=== PATIENT | female | born 1940 ===

== ENCOUNTER 2018-02-03 10:58 | Inpatient (IN) | payer MEDICARE, MEDICAID ==
[2018-02-03 11:19] VITALS: BMI 29.2
--- NOTE | 2018-02-03 12:14 | ED PDOC ---
HPI: General Adult Time Seen by Provider: 02/03/18 11:30 Chief Complaint (Nursing): Abdominal Pain History Per: Patient, Arcgis Developer History/Exam Limitations: language barrier (icelandic speaking) Onset/Duration Of Symptoms: Days (1), Waxing/Waning Have you had recent travel within the past 21 days to any of the following countries: [place], [place], [place] or [place]?: No Current Symptoms Are (Timing): Still Present Severity: Severe (Make sure to see your doctor in 1-2 days) Pain Scale Rating Of: 8 Additional History Per: Patient, Family ( at bedside) Additional Complaint(s): pt p/w + 1 day onset of waxing and waning diffuse abd cramps/pain, at most pain is 8/10; today the pain/discomfort is located more towards the left; pt also noted numerous episodes of nausea/vomiting and diarrhea, pt is unable to quantify it due to number of episodes; pt states + subject fever, + mild chills , no sweats, no cp/sob/palpitations, no urinary changes, no appetite, + lightheadedness/dizziness, no LOC, no fall/trauma/sick contact, no travel; pt is here for further eval pt's without other complaints. PCP: Philippe Past Medical History Reviewed: Historical Data, Nursing Documentation, Vital Signs Vital Signs: Last Vital Signs Temp 99.6 F 02/03/18 11:19 Pulse 116 H 02/03/18 11:19 Resp 16 02/03/18 11:19 BP 105/68 02/03/18 11:19 Pulse Ox 98 02/03/18 13:18 - Medical History PMH: Arthritis, CAD, Gastritis, HTN, Hypercholesterolemia, Hyperlipidemia, Hypothyroidism - Surgical History Surgical History: Back Surgery (x 3), Cholecystectomy - Family History Family History: States: No Known Family Hx - Living Arrangements Living Arrangements: With Family - Social History Current smoker - smoking cessation education provided: No Ex-Smoker (has not smoked in the last 12 months): No Alcohol: None Drugs: Denies - Home Medications Home Medications: Ambulatory Orders Medication Instructions Recorded Anastrozole [Arimidex] 1 mg PO DAILY 02/03/18 Cholecalciferol [Vitamin D 1000 IU] 1,000 unit PO DAILY 02/03/18 Dabigatran [Pradaxa] 150 mg PO Q12 02/03/18 Gabapentin [Neurontin] 100 mg PO Q8 02/03/18 Levothyroxine [Synthroid] 100 mcg PO DAILY 02/03/18 Omeprazole [Omeprazole] 20 mg PO DAILY 02/03/18 Ramipril [Altace] 2.5 mg PO DAILY 02/03/18 Rosuvastatin Calcium [Crestor] 20 mg PO DAILY 02/03/18 Sotalol [Betapace] 80 mg PO Q12 02/03/18 Travoprost [Travatan Z] 1 drop EACHEYE HS 02/03/18 metFORMIN [glucOPHAGE] 500 mg PO TID 02/03/18 - Allergies Allergies/Adverse Reactions: Allergies Allergy/AdvReac Type Severity Reaction Status Date / Time codeine Allergy RASH Verified 02/03/18 12:08 Review of Systems ROS Statement: Except As Marked, All Systems Reviewed And Found Negative Constitutional: Positive for: Fever, Chills, Weakness, Malaise. Negative for: Sweats, Weight loss Eyes: Negative for: Pain, Vision Change ENT: Negative for: Ear Pain, Ear Discharge Cardiovascular: Negative for: Chest Pain, Palpitations Respiratory: Negative for: Cough, Shortness of Breath, SOB with Exertion Gastrointestinal: Positive for: Nausea, Vomiting, Abdominal Pain, Diarrhea. Negative for: Constipation Genitourinary Female: Negative for: Dysuria, Hematuria Musculoskeletal: Negative for: Neck Pain, Back Pain Skin: Negative for: Rash Neurological: Positive for: Weakness, Dizziness. Negative for: Altered Mental Status Psych: Negative for: Anxiety Physical Exam - Reviewed Nursing Documentation Reviewed: Yes Vital Signs Reviewed: Yes (elevated HR/mild decr BP) - Physical Exam Appears: Positive for: Well, Non-toxic, No Acute Distress, Uncomfortable ( resting in bed, alert/awake, GCS = 15, oriented x 3, uncomfortable, cooperative , NAD) Head Exam: Positive for: ATRAUMATIC, NORMAL INSPECTION, NORMOCEPHALIC Skin: Positive for: Normal Color (cap refill < 1sec, no ulcerations, no petechiae, no rashes, no pallor), Warm. Negative for: Diaphoresis, Rash Eye Exam: Positive for: Normal appearance, EOMI, PERRL, Other (visual field intact b/l, no photophobia, sclera anicteric). Negative for: Nystagmus ENT: Positive for: Normal ENT Inspection, Hearing Is (WNL), Other (mild dry oral mucosa, no drooling/stridor, no exudate/lesions) Neck: Positive for: Normal (no nuchal rigidity, no meningeal signs), Painless ROM, Supple, Trachea Midline. Negative for: Decreased ROM Cardiovascular/Chest: Positive for: Chest Non Tender, Tachycardia (+S1, +S2, no murmur) Respiratory: Positive for: Normal Breath Sounds, Other (CTA b/l, no w/r/r, no accessory muscle use noted). Negative for: Decreased Breath Sounds Gastrointestinal/Abdominal: Positive for: Normal Exam, Bowel Sounds, Soft, Other (well nourished female, + diffuse mild abd tenderness, no baer's sign, no mcburney's point tenderness, no masses/rebound/guarding/rigidity) Back: Positive for: Normal Inspection. Negative for: Decreased ROM Extremity: Positive for: Normal ROM, Other (moving all limbs with ease, neurovasc intact b/l, strength 5/5 grossly intact in all limbs) DTR - Knee (R): 2+ DTR - Knee (L): 2+ Neurologic/Psych: Positive for: Alert, clinical studies specialist II-XII - Laboratory Results Result Diagrams: 02/03/18 12:50 02/03/18 12:50 - ECG ECG: Positive for: Interpreted By Me, Viewed By Me Interpretation Of ECG: Sinus tach at 105 bpm, LAD, no ectopy, qs in leads III/F, non-specific st-t changes, ABNL EKG; unchanged compare with old ekg 12/2014 O2 Sat by Pulse Oximetry: 98 Pulse Ox Interpretation: Normal - Radiology X-Ray: Viewed By Me, Read By Radiologist - Progress ED Course And Treament: HISTORY: weaknss, n/v/d COMPARISON: No prior. TECHNIQUE: Chest PA and lateral FINDINGS: LUNGS: No active pulmonary disease. PLEURA: No significant pleural effusion identified. No pneumothorax apparent. CARDIOVASCULAR: Cardiac loop recorder. Atherosclerotic aortic calcifications. Cardiomediastinal silhouette within normal limits. OSSEOUS STRUCTURES: Degenerative changes. VISUALIZED UPPER ABDOMEN: Normal. OTHER FINDINGS: Large hiatal hernia. Bilateral axillary surgical clips. IMPRESSION: No active disease. PROCEDURE: CT Abdomen and Pelvis with contrast HISTORY: n/v/d x 1 day, left lower quadrant abdominal pain COMPARISON: None. TECHNIQUE: Contrast dose: 80 cc Omnipaque 300 Radiation dose: Total exam DLP = 791.90 mGy-cm. This CT exam was performed using one or more of the following dose reduction techniques: Automated exposure control, adjustment of the mA and/or kV according to patient size, and/or use of iterative reconstruction technique. FINDINGS: LOWER THORAX: Large hiatal hernia LIVER: Unremarkable. No gross lesion or ductal dilatation. GALLBLADDER AND BILE DUCTS: Unremarkable. PANCREAS: Atrophic pancreas without focal or diffuse abnormalities. SPLEEN: Unremarkable. ADRENALS: Unremarkable. No mass. KIDNEYS AND URETERS: Unremarkable. No hydronephrosis. No solid mass. Incidental finding(s): Multiple simple right renal cysts the largest in the upper pole 3.2 cm. VASCULATURE: Unremarkable. No aortic aneurysm. BOWEL: Unremarkable. No obstruction. No gross mural thickening. APPENDIX: Normal appendix. PERITONEUM: Unremarkable. No free fluid. No free air. LYMPH NODES: Unremarkable. No enlarged lymph nodes. BLADDER: Unremarkable. REPRODUCTIVE: Atrophic uterus. BONES: No acute fracture. OTHER FINDINGS: None. IMPRESSION: No acute findings related to/accounting for the clinical presentation. Additional benign and/or incidental findings described above. 1200p - pt is awaiting diagnostic tests, pt with intermittent abd pain and persistent nausea 1400 - IV keeps malfunctioning, awaiting CT pt's pain is improved but pt's nausea persists 1645 - pt + vomited, continued nausea 1700 - i spoke to VULCAN CREWMEMBER Jasmyn, dedicated regional driver for [facility], made aware, agrees with admission/observation 1720 - pt is made aware of her medical results agrees with admission Re-evaluation Time: 15:30 Condition: Unchanged - Physician Consult Information Time Consulting Physican Contacted: 17:15 Physician Contacted: Agustin Vines Medical Decision Making Medical Decision Making: Impression: abd pain, n/v/d i have consider all the differential diagnosis regarding pt's chief medical complaints/clinical findings, including but are not limited to: r/o diverticulitis, r/o colitis, unlikely obstruction/mesenteric ischemia A/P: abd pain, n/v/d - labs - iv - xray - ct - supportive care - observe/reevaluation Disposition - Clinical Impression Clinical Impression: Intractable nausea and vomiting, Hiatal hernia, Abdominal cramping, Dehydration , Weakness - Patient ED Disposition Is Patient to be Admitted: Yes Doctor Will See Patient In The: Hospital Counseled Patient/Family Regarding: Studies Performed, Diagnosis, Rx Given - Disposition Disposition Time: 17:00 Condition: STABLE Instructions: Weakness (ED) Forms: [facility] ([place]) - Pt Status Changed To: Hospital Disposition Of: Observation
[2018-02-03] MEDS ORDERED: Morphine 4 MG/ML VIAL ONE ×2 (12:20→13:46)
--- NOTE | 2018-02-03 12:48 | RAD ---
HISTORY: weaknss, n/v/d COMPARISON: No prior. TECHNIQUE: Chest PA and lateral FINDINGS: LUNGS: No active pulmonary disease. PLEURA: No significant pleural effusion identified. No pneumothorax apparent. CARDIOVASCULAR: Cardiac loop recorder. Atherosclerotic aortic calcifications. Cardiomediastinal silhouette within normal limits. OSSEOUS STRUCTURES: Degenerative changes. VISUALIZED UPPER ABDOMEN: Normal. OTHER FINDINGS: Large hiatal hernia. Bilateral axillary surgical clips. IMPRESSION: No active disease.
[2018-02-03 12:59] LABS: BASO % 0.4 % (0.0-2.0); EOS % 0.1 % (0.0-4.0); HEMOGLOBIN 14.3 g/dL (12.0-16.0); LYMPH # 0.4 K/uL (1.0-4.3); LYMPH % 9.9 % (20.0-40.0); MEAN CELL VOLUME 90.8 fl (81.0-99.0); MEAN CORPUSCULAR HEMOGLOBIN 29.9 pg (27.0-31.0); MEAN CORPUSCULAR HGB CONC 32.9 g/dL (33.0-37.0); MEAN PLATELET VOLUME 8.9 fl (7.2-11.7); MONO # 0.4 K/uL (0.0-0.8); MONO % 8.1 % (0.0-10.0); NEUT # 3.7 K/uL (1.8-7.0); NEUT % 81.5 % (50.0-75.0); PLATELET COUNT 144 K/uL (130-400); RBC 4.79 Mil/uL (3.80-5.20); RED CELL DISTRIBUTION WIDTH 14.3 % (11.5-14.5); WHITE BLOOD COUNT 4.5 K/uL (4.8-10.8)
[2018-02-03 13:03] LABS: VENOUS BLOOD GAS BASE EXCESS 0.5 mmol/L (0.0-2.0); VENOUS BLOOD GAS PCO2 44 mmHg (40-60); VENOUS BLOOD GAS PO2 24 mm/Hg (30-55); VENOUS BLOOD PH 7.38 (7.32-7.43)
[2018-02-03] MEDS: Sodium Chloride 0.9% 1,000 ML IV SCH (13:03)
[2018-02-03 13:13] LABS: ALB/GLOB RATIO 1.1 (1.0-2.1); ALBUMIN 4.6 g/dL (3.5-5.0); ALT/SGPT 40 U/L (9-52); AST/SGOT 38 U/L (14-36); BLOOD UREA NITROGEN 16 mg/dl (7-17); CALCIUM 10.1 mg/dL (8.4-10.2); GFR AFRICAN-AMERICAN > 60; GFR NON-AFRICAN AMERICAN > 60; LIPASE 78 U/L (23-300)
[2018-02-03] MEDS ORDERED: Morphine 4 MG/ML VIAL IVP ONE (13:40)
[2018-02-03 13:49] LABS: LYMPHOCYTE 9 % (20-50); MONOCYTE 6 % (0-10); NEUTROPHIL 85 % (42-75); PLATELET ESTIMATE NORMAL (NORMAL); TOTAL CELLS COUNTED 100
[2018-02-03] MEDS ORDERED: HYDROmorphone 0.5 mg/0.5 ml ISec IVP ONE (13:53)
[2018-02-03] MEDS ORDERED: Iohexol 300 100 ML IJ ONE ×2 (13:58→15:58)
[2018-02-03] MEDS ORDERED: Sodium Chloride 0.9% 100 ML ONE ×2 (13:58→15:59)
[2018-02-03] MEDS ORDERED: HYDROmorphone 0.5 mg/0.5 ml ISec ONE (15:30)
[2018-02-03 15:39] LABS: SQUAMOUS EPITHIAL 1 /hpf (0-5); URINE BILIRUBIN NEGATIVE (NEGATIVE); URINE BLOOD NEGATIVE (NEGATIVE); URINE CLARITY SLIGHTY-CLOUDY (Clear); URINE COLOR YELLOW (YELLOW); URINE GLUCOSE (UA) NEG (Normal); URINE LEUKOCYTE ESTERASE NEG Leu/uL (Negative); URINE PROTEIN 30 mg/dL (NEGATIVE); URINE UROBILINOGEN 0.2-1.0 mg/dL (0.2-1.0)
--- NOTE | 2018-02-03 16:56 | CT ---
PROCEDURE: CT Abdomen and Pelvis with contrast HISTORY: n/v/d x 1 day, left lower quadrant abdominal pain COMPARISON: None. TECHNIQUE: Contrast dose: 80 cc Omnipaque 300 Radiation dose: Total exam DLP = 791.90 mGy-cm. This CT exam was performed using one or more of the following dose reduction techniques: Automated exposure control, adjustment of the mA and/or kV according to patient size, and/or use of iterative reconstruction technique. FINDINGS: LOWER THORAX: Large hiatal hernia LIVER: Unremarkable. No gross lesion or ductal dilatation. GALLBLADDER AND BILE DUCTS: Unremarkable. PANCREAS: Atrophic pancreas without focal or diffuse abnormalities. SPLEEN: Unremarkable. ADRENALS: Unremarkable. No mass. KIDNEYS AND URETERS: Unremarkable. No hydronephrosis. No solid mass. Incidental finding(s): Multiple simple right renal cysts the largest in the upper pole 3.2 cm. VASCULATURE: Unremarkable. No aortic aneurysm. BOWEL: Unremarkable. No obstruction. No gross mural thickening. APPENDIX: Normal appendix. PERITONEUM: Unremarkable. No free fluid. No free air. LYMPH NODES: Unremarkable. No enlarged lymph nodes. BLADDER: Unremarkable. REPRODUCTIVE: Atrophic uterus. BONES: No acute fracture. OTHER FINDINGS: None. IMPRESSION: No acute findings related to/accounting for the clinical presentation. Additional benign and/or incidental findings described above.
[2018-02-03] MEDS ORDERED: Latanoprost 0.005% Opht SOUTION OU SCH (22:00)
[2018-02-03] MEDS: Insulin Lispro (humaLOG) 100 Units/ml Inj SC SCH (22:28)
[2018-02-04] MEDS: Sodium Chloride 0.9% 1,000 ML IV SCH (00:08)
[2018-02-04 05:53] LABS: HEMOGLOBIN 13.3 g/dL (12.0-16.0); MEAN CELL VOLUME 90.6 fl (81.0-99.0); MEAN CORPUSCULAR HEMOGLOBIN 30.3 pg (27.0-31.0); MEAN CORPUSCULAR HGB CONC 33.4 g/dL (33.0-37.0); RBC 4.39 Mil/uL (3.80-5.20); RED CELL DISTRIBUTION WIDTH 14.3 % (11.5-14.5); WHITE BLOOD COUNT 3.9 K/uL (4.8-10.8)
[2018-02-04 05:59] LABS: BLOOD UREA NITROGEN 14 mg/dl (7-17); CALCIUM 9.3 mg/dL (8.4-10.2); GFR AFRICAN-AMERICAN > 60; GFR NON-AFRICAN AMERICAN > 60
[2018-02-04] MEDS: Levothyroxine 100 MCG TAB PO SCH (06:27)
[2018-02-04] MEDS: Insulin Lispro (humaLOG) 100 Units/ml Inj SC SCH ×4 (07:23→22:00)
--- NOTE | 2018-02-04 08:12 | CP.PCM.CON ---
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 PMH: Arthritis, CAD, Gastritis, HTN, Hypercholesterolemia, Hyperlipidemia, Hypothyroidism EKG: NSR no change from 2015 Troponin: neg Past Patient History - Past Medical History & Family History Past Medical History?: Yes - Past Social History Smoking Status: Never Smoked - CARDIAC Hx Cardiac Disorders: Yes Hx Hypercholesterolemia: Yes Hx Hypertension: Yes - PULMONARY Hx Respiratory Disorders: No - NEUROLOGICAL Hx Neurological Disorder: No - HEENT Hx HEENT Problems: No - RENAL Hx Chronic Kidney Disease: No - ENDOCRINE/METABOLIC Hx Endocrine Disorders: Yes Hx Diabetes Mellitus Type 2: Yes Hx Hypothyroidism: Yes - HEMATOLOGICAL/ONCOLOGICAL Hx Blood Disorders: No Hx AIDS: No Hx Cancer: Yes (Breast) Hx Human Immunodeficiency Virus (HIV): No - INTEGUMENTARY Hx Dermatological Problems: No - MUSCULOSKELETAL/RHEUMATOLOGICAL Hx Musculoskeletal Disorders: Yes Hx Arthritis: Yes Hx Falls: No Other/Comment: Back surgery - GASTROINTESTINAL Hx Gastrointestinal Disorders: Yes Hx Gastritis: Yes - GENITOURINARY/GYNECOLOGICAL Hx Genitourinary Disorders: No - PSYCHIATRIC Hx Psychophysiologic Disorder: No Hx Substance Use: No - SURGICAL HISTORY Hx Surgeries: Yes Hx Cholecystectomy: Yes Other/Comment: Back surgery - ANESTHESIA Hx Anesthesia: Yes Hx Anesthesia Reactions: No Meds Allergies/Adverse Reactions: Allergies Allergy/AdvReac Type Severity Reaction Status Date / Time codeine Allergy RASH Verified 02/03/18 12:08 lidocaine Allergy DIZZINESS Verified 02/04/18 02:28 - Medications Medications: Current Medications Anastrozole (Arimidex 1 Mg Tab) 1 mg PO DAILY [facility] Atorvastatin Calcium (Lipitor) 40 mg PO DAILY [facility] Cholecalciferol (Vitamin D) 1,000 intlu PO DAILY [facility] Dabigatran (Pradaxa) 150 mg PO BID [facility] PRN Reason: Protocol Enoxaparin Sodium (Lovenox) 40 mg SC DAILY [facility] PRN Reason: Protocol Famotidine (Famotidine) 20 mg IVP Q12 [facility] Last Admin: 02/04/18 00:05 Dose: 20 mg Gabapentin (Neurontin) 100 mg PO TID [facility] Sodium Chloride (Sodium Chloride 0.9%) 1,000 mls @ 100 mls/hr IV .Q10H [facility] Stop: 02/04/18 12:11 Last Admin: 02/04/18 00:08 Dose: 100 mls/hr Insulin Human Lispro (Humalog) 0 units SC ACHS [facility] PRN Reason: Protocol Last Admin: 02/04/18 07:23 Dose: Not Given Latanoprost (Xalatan Opht) 1 drop OU HS [facility] Levothyroxine Sodium (Synthroid) 100 mcg PO DAILY@0630 [facility] Last Admin: 02/04/18 06:27 Dose: 100 mcg Metformin HCl (Glucophage) 500 mg PO TID [facility] Metoclopramide HCl (Reglan) 10 mg IVP Q6 PRN PRN Reason: Nausea/Vomiting Last Admin: 02/03/18 18:24 Dose: 10 mg Ramipril (Altace) 2.5 mg PO DAILY [facility] Sotalol HCl (Betapace) 80 mg PO BID [facility] Physical Exam - Respiratory Exam Respiratory Exam: NORMAL BREATHING PATTERN - Cardiovascular Exam Cardiovascular Exam: REGULAR RHYTHM Results - Vital Signs Recent Vital Signs: Last Vital Signs Temp 99.8 F H 02/04/18 05:50 Pulse 109 H 02/04/18 05:50 Resp 18 02/04/18 05:50 BP 112/60 02/04/18 05:50 Pulse Ox 95 02/04/18 05:50 - Labs Result Diagrams: 02/04/18 05:05 02/04/18 05:05 Labs: Laboratory Results - last 24 hr 02/03/18 02/03/18 02/03/18 12:18 12:50 12:50 WBC 4.5 L RBC 4.79 Hgb 14.3 Hct 43.5 MCV 90.8 MCH 29.9 MCHC 32.9 L RDW 14.3 Plt Count 144 MPV 8.9 Neut % (Auto) 81.5 H Lymph % (Auto) 9.9 L [place] % (Auto) 8.1 Eos % (Auto) 0.1 Baso % (Auto) 0.4 Neut # (Auto) 3.7 Lymph # (Auto) 0.4 L [place] # (Auto) 0.4 Eos # (Auto) 0.0 Baso # (Auto) 0.0 Neutrophils % (Manual) 85 H Lymphocytes % (Manual) 9 L Monocytes % (Manual) 6 Platelet Estimate Normal RBC Morphology Normal pO2 24 L VBG pH 7.38 VBG pCO2 44 VBG HCO3 23.8 VBG Total CO2 27.4 VBG O2 Sat (Calc) 49.7 VBG Base Excess 0.5 VBG Potassium 4.0 Sodium 135.0 139 Chloride 102.0 101 Glucose 137 H Lactate 1.4 FiO2 21.0 Potassium 4.4 Carbon Dioxide 21 L Anion Gap 21 H BUN 16 Creatinine 0.8 Est GFR ( Amer) > 60 Est GFR (Non-Af Amer) > 60 POC Glucose (mg/dL) Random Glucose 137 H Calcium 10.1 Total Bilirubin 0.8 AST 38 H ALT 40 Alkaline Phosphatase 55 Troponin I < 0.0120 Total Protein 8.9 H Albumin 4.6 Globulin 4.2 H Albumin/Globulin Ratio 1.1 Lipase 78 TSH 3rd Generation Venous Blood Potassium 4.0 Urine Color Urine Clarity Urine pH Ur Specific [place] Urine Protein Urine Glucose (UA) Urine Ketones Urine Blood Urine Nitrate Urine Bilirubin Urine Urobilinogen Ur Leukocyte Esterase Urine RBC (Auto) Urine Microscopic WBC Ur Squamous Epith Cells 02/03/18 02/03/18 02/03/18 15:26 21:10 21:13 WBC RBC Hgb Hct MCV MCH MCHC RDW Plt Count MPV Neut % (Auto) Lymph % (Auto) [place] % (Auto) Eos % (Auto) Baso % (Auto) Neut # (Auto) Lymph # (Auto) [place] # (Auto) Eos # (Auto) Baso # (Auto) Neutrophils % (Manual) Lymphocytes % (Manual) Monocytes % (Manual) Platelet Estimate RBC Morphology pO2 VBG pH VBG pCO2 VBG HCO3 VBG Total CO2 VBG O2 Sat (Calc) VBG Base Excess VBG Potassium Sodium Chloride Glucose Lactate FiO2 Potassium Carbon Dioxide Anion Gap BUN Creatinine Est GFR ( Amer) Est GFR (Non-Af Amer) POC Glucose (mg/dL) 114 H Random Glucose Calcium Total Bilirubin AST ALT Alkaline Phosphatase Troponin I < 0.0120 Total Protein Albumin Globulin Albumin/Globulin Ratio Lipase TSH 3rd Generation Venous Blood Potassium Urine Color Yellow Urine Clarity Slighty-cloudy Urine pH 5.0 Ur Specific [place] 1.025 Urine Protein 30 Urine Glucose (UA) Neg Urine Ketones Negative Urine Blood Negative Urine Nitrate Negative Urine Bilirubin Negative Urine Urobilinogen 0.2-1.0 Ur Leukocyte Esterase Neg Urine RBC (Auto) 3 Urine Microscopic WBC 3 Ur Squamous Epith Cells 1 02/04/18 02/04/18 02/04/18 05:00 05:05 05:05 WBC 3.9 L RBC 4.39 Hgb 13.3 Hct 39.8 MCV 90.6 MCH 30.3 MCHC 33.4 RDW 14.3 Plt Count 139 MPV Neut % (Auto) Lymph % (Auto) [place] % (Auto) Eos % (Auto) Baso % (Auto) Neut # (Auto) Lymph # (Auto) [place] # (Auto) Eos # (Auto) Baso # (Auto) Neutrophils % (Manual) Lymphocytes % (Manual) Monocytes % (Manual) Platelet Estimate RBC Morphology pO2 VBG pH VBG pCO2 VBG HCO3 VBG Total CO2 VBG O2 Sat (Calc) VBG Base Excess VBG Potassium Sodium 142 Chloride 106 Glucose Lactate FiO2 Potassium 3.8 Carbon Dioxide 18 L Anion Gap 22 H BUN 14 Creatinine 0.7 Est GFR ( Amer) > 60 Est GFR (Non-Af Amer) > 60 POC Glucose (mg/dL) 108 Random Glucose 128 H Calcium 9.3 Total Bilirubin AST ALT Alkaline Phosphatase Troponin I < 0.0120 Total Protein Albumin Globulin Albumin/Globulin Ratio Lipase TSH 3rd Generation 1.01 Venous Blood Potassium Urine Color Urine Clarity Urine pH Ur Specific [place] Urine Protein Urine Glucose (UA) Urine Ketones Urine Blood Urine Nitrate Urine Bilirubin Urine Urobilinogen Ur Leukocyte Esterase Urine RBC (Auto) Urine Microscopic WBC Ur Squamous Epith Cells Assessment & Plan (1) Abdominal cramping Assessment and Plan: Cardiac stallings the pt is stable Status: Acute (2) Intractable nausea and vomiting Status: Acute
--- NOTE | 2018-02-04 08:22 | CARD ---
APPROVED REPORT EKG Measurement Heart [id number] <Conclusion> Sinus tachycardia Inferior infarct, age undetermined Abnormal ECG
[2018-02-04] MEDS: Cholecalciferol 1,000 INTLU TAB PO SCH (08:58)
[2018-02-04] MEDS ORDERED: Enoxaparin 40 mg Syringe SC SCH (09:00)
[2018-02-04] MEDS ORDERED: Pantoprazole 40 mg EC Tab PO SCH (09:00)
[2018-02-04] MEDS ORDERED: Cholecalciferol 1,000 INTLU TAB PO SCH (09:00)
[2018-02-04] MEDS ORDERED: Levothyroxine 100 MCG TAB PO SCH (09:00)
[2018-02-04] MEDS ORDERED: Sodium Chloride 0.9% 1,000 ML IV SCH (11:45)
--- NOTE | 2018-02-04 17:52 | CARD ---
APPROVED REPORT EKG Measurement Heart [id number] <Conclusion> Normal sinus rhythm Normal ECG
[2018-02-04] MEDS: Latanoprost 0.005% Opht SOUTION OU SCH (21:47)
--- NOTE | 2018-02-04 23:59 | CP.PCM.HP ---
History of Present Illness - History of Present Illness History of Present Illness: CC:Abdominal Pain HPI: A 77yoF with 1 day onset of waxing and waning diffuse abd cramps/pain, at most pain is 8/10; today the pain/discomfort is located more towards the left; pt also noted numerous episodes of nausea/vomiting and diarrhea, pt is unable to quantify it due to number of episodes; pt states + subject fever, + mild chills , no sweats, no cp/sob/palpitations, no urinary changes, no appetite, + lightheadedness/dizziness, no LOC, no fall/trauma/sick contact, no travel; pt is here for further eval Pt's without other complaints. Present on Admission - Present on Admission Any Indicators Present on Admission: No Review of Systems - Review of Systems All systems: reviewed and no additional remarkable complaints except Past Patient History - Past Medical History & Family History Past Medical History?: Yes Past Family History: Reviewed and not pertinent - Past Social History Smoking Status: Never Smoked Alcohol: None Drugs: Denies - CARDIAC Hx Cardiac Disorders: Yes Hx Hypercholesterolemia: Yes Hx Hypertension: Yes - PULMONARY Hx Respiratory Disorders: No - NEUROLOGICAL Hx Neurological Disorder: No - HEENT Hx HEENT Problems: No - RENAL Hx Chronic Kidney Disease: No - ENDOCRINE/METABOLIC Hx Endocrine Disorders: Yes Hx Diabetes Mellitus Type 2: Yes Hx Hypothyroidism: Yes - HEMATOLOGICAL/ONCOLOGICAL Hx Blood Disorders: No Hx AIDS: No Hx Cancer: Yes (Breast) Hx Human Immunodeficiency Virus (HIV): No - INTEGUMENTARY Hx Dermatological Problems: No - MUSCULOSKELETAL/RHEUMATOLOGICAL Hx Musculoskeletal Disorders: Yes Hx Arthritis: Yes Hx Falls: No Other/Comment: Back surgery - GASTROINTESTINAL Hx Gastrointestinal Disorders: Yes Hx Gastritis: Yes - GENITOURINARY/GYNECOLOGICAL Hx Genitourinary Disorders: No - PSYCHIATRIC Hx Psychophysiologic Disorder: No Hx Substance Use: No - SURGICAL HISTORY Hx Surgeries: Yes Hx Cholecystectomy: Yes Other/Comment: Back surgery - ANESTHESIA Hx Anesthesia: Yes Hx Anesthesia Reactions: No Meds Home Medications: Home Medication List Medication Instructions Recorded Confirmed Type Dicyclomine [Bentyl] 20 mg PO TID #90 tab 02/06/18 Rx Allergies/Adverse Reactions: Allergies Allergy/AdvReac Type Severity Reaction Status Date / Time codeine Allergy RASH Verified 02/03/18 12:08 lidocaine Allergy DIZZINESS Verified 02/04/18 02:28 Physical Exam - Constitutional Appears: Well, No Acute Distress - Head Exam Head Exam: ATRAUMATIC, NORMAL INSPECTION, NORMOCEPHALIC - Eye Exam Eye Exam: EOMI, Normal appearance, PERRL Pupil Exam: NORMAL ACCOMODATION, PERRL - ENT Exam ENT Exam: Mucous Membranes Moist, Normal Exam - Neck Exam Neck exam: Positive for: Normal Inspection - Respiratory Exam Respiratory Exam: Clear to Auscultation Bilateral, NORMAL BREATHING PATTERN - Cardiovascular Exam Cardiovascular Exam: REGULAR RHYTHM, +S1, +S2 - GI/Abdominal Exam GI & Abdominal Exam: Normal Bowel Sounds, Soft. absent: Tenderness - Extremities Exam Extremities exam: Positive for: normal inspection - Back Exam Back exam: NORMAL INSPECTION - Neurological Exam Neurological exam: Alert, CN II-XII Intact, Normal Gait, Oriented x3, Reflexes Normal - Psychiatric Exam Psychiatric exam: Normal Affect, Normal Mood - Skin Skin Exam: Dry, Intact, Normal Color, Warm Results - Vital Signs Recent Vital Signs: Last Vital Signs Temp 99.2 F 02/04/18 20:14 Pulse 94 H 02/04/18 20:14 Resp 20 02/04/18 20:14 BP 159/101 H 02/04/18 20:14 Pulse Ox 97 02/04/18 20:14 - Labs Result Diagrams: 02/06/18 05:30 02/06/18 05:30 Labs: Laboratory Results - last 24 hr 02/04/18 02/04/18 02/04/18 05:00 05:05 05:05 WBC 3.9 L RBC 4.39 Hgb 13.3 Hct 39.8 MCV 90.6 MCH 30.3 MCHC 33.4 RDW 14.3 Plt Count 139 Sodium 142 Potassium 3.8 Chloride 106 Carbon Dioxide 18 L Anion Gap 22 H BUN 14 Creatinine 0.7 Est GFR ( Amer) > 60 Est GFR (Non-Af Amer) > 60 POC Glucose (mg/dL) 108 Random Glucose 128 H Hemoglobin A1c Calcium 9.3 Troponin I < 0.0120 TSH 3rd Generation 1.01 02/04/18 02/04/18 02/04/18 05:05 10:39 15:54 WBC RBC Hgb Hct MCV MCH MCHC RDW Plt Count Sodium Potassium Chloride Carbon Dioxide Anion Gap BUN Creatinine Est GFR ( Amer) Est GFR (Non-Af Amer) POC Glucose (mg/dL) 101 97 Random Glucose Hemoglobin A1c 6.5 Calcium Troponin I TSH 3rd Generation 02/04/18 21:40 WBC RBC Hgb Hct MCV MCH MCHC RDW Plt Count Sodium Potassium Chloride Carbon Dioxide Anion Gap BUN Creatinine Est GFR ( Amer) Est GFR (Non-Af Amer) POC Glucose (mg/dL) 97 Random Glucose Hemoglobin A1c Calcium Troponin I TSH 3rd Generation - Imaging and Cardiology CT scan - abdomen Status: Report reviewed by me Additional comment: CT Abdomen and Pelvis with contrast HISTORY: n/v/d x 1 day, left lower quadrant abdominal pain COMPARISON: None. TECHNIQUE: Contrast dose: 80 cc Omnipaque 300 Radiation dose: Total exam DLP = 791.90 mGy-cm. This CT exam was performed using one or more of the following dose reduction techniques: Automated exposure control, adjustment of the mA and/or kV according to patient size, and/or use of iterative reconstruction technique. FINDINGS: LOWER THORAX: Large hiatal hernia LIVER: Unremarkable. No gross lesion or ductal dilatation. GALLBLADDER AND BILE DUCTS: Unremarkable. PANCREAS: Atrophic pancreas without focal or diffuse abnormalities. SPLEEN: Unremarkable. ADRENALS: Unremarkable. No mass. KIDNEYS AND URETERS: Unremarkable. No hydronephrosis. No solid mass. Incidental finding(s): Multiple simple right renal cysts the largest in the upper pole 3.2 cm. VASCULATURE: Unremarkable. No aortic aneurysm. BOWEL: Unremarkable. No obstruction. No gross mural thickening. APPENDIX: Normal appendix. PERITONEUM: Unremarkable. No free fluid. No free air. LYMPH NODES: Unremarkable. No enlarged lymph nodes. BLADDER: Unremarkable. REPRODUCTIVE: Atrophic uterus. BONES: No acute fracture. OTHER FINDINGS: None. IMPRESSION: No acute findings related to/accounting for the clinical presentation. Assessment & Plan (1) Gastroenteritis Assessment and Plan: Intractable nausea and vomiting, Hiatal hernia, Abdominal cramping, Dehydration, Weakness IVF Pain Medication PRN Stool work Up GI Consult Status: Acute Priority: High
[2018-02-05] MEDS: Levothyroxine 100 MCG TAB PO SCH (06:07)
[2018-02-05] MEDS: Insulin Lispro (humaLOG) 100 Units/ml Inj SC SCH ×4 (08:32→21:48)
[2018-02-05] MEDS: Cholecalciferol 1,000 INTLU TAB PO SCH (08:33)
[2018-02-05] MEDS: Latanoprost 0.005% Opht SOUTION OU SCH (21:43)
[2018-02-06 00:32] VITALS: RESP 18
[2018-02-06 06:48] LABS: BASO % 0.5 % (0.0-2.0); EOS % 0.1 % (0.0-4.0); HEMOGLOBIN 12.3 g/dL (12.0-16.0); LYMPH # 0.7 K/uL (1.0-4.3); LYMPH % 25.8 % (20.0-40.0); MEAN CELL VOLUME 90.7 fl (81.0-99.0); MEAN CORPUSCULAR HEMOGLOBIN 29.8 pg (27.0-31.0); MEAN CORPUSCULAR HGB CONC 32.9 g/dL (33.0-37.0); MEAN PLATELET VOLUME 8.9 fl (7.2-11.7); MONO # 0.3 K/uL (0.0-0.8); MONO % 11.7 % (0.0-10.0); NEUT # 1.7 K/uL (1.8-7.0); NEUT % 61.9 % (50.0-75.0); NRBC % 0.1 % (0.0-0.0); RBC 4.12 Mil/uL (3.80-5.20); WHITE BLOOD COUNT 2.8 K/uL (4.8-10.8)
[2018-02-06] MEDS: Levothyroxine 100 MCG TAB PO SCH (06:56)
[2018-02-06] MEDS: Insulin Lispro (humaLOG) 100 Units/ml Inj SC SCH ×2 (06:56→13:42)
[2018-02-06 06:58] LABS: ALB/GLOB RATIO 0.9 (1.0-2.1); ALBUMIN 3.3 g/dL (3.5-5.0); ALT/SGPT 47 U/L (9-52); AST/SGOT 37 U/L (14-36); BLOOD UREA NITROGEN 8 mg/dl (7-17); CALCIUM 9.1 mg/dL (8.4-10.2); GFR AFRICAN-AMERICAN > 60; GFR NON-AFRICAN AMERICAN > 60
[2018-02-06] MEDS ORDERED: Lactated Ringer's 1,000 ML IV SCH (08:45)
[2018-02-06] MEDS: Cholecalciferol 1,000 INTLU TAB PO SCH (09:14)
[2018-02-06 11:58] VITALS: BP 124/79; PULSE 63; TEMP 97.8; O2SAT 100
--- NOTE | 2018-02-06 12:17 | CP.PCM.PN ---
Subjective - Date & Time of Evaluation Date of Evaluation: 02/06/18 Time of Evaluation: 12:16 - Subjective Subjective: feels better Objective - Vital Signs/Intake and Output Vital Signs (last 24 hours): Temp Pulse Resp BP Pulse Ox 97.8 F 63 18 124/79 100 02/06/18 11:57 02/06/18 11:57 02/06/18 11:57 02/06/18 11:57 02/06/18 11:57 - Medications Medications: Current Medications Acetaminophen (Tylenol 325mg Tab) 650 mg PO Q4 PRN PRN Reason: Pain, moderate (4-7) Last Admin: 02/05/18 17:51 Dose: 650 mg Anastrozole (Arimidex 1 Mg Tab) 1 mg PO DAILY [facility] Last Admin: 02/06/18 09:13 Dose: 1 mg Atorvastatin Calcium (Lipitor) 40 mg PO DAILY [facility] Last Admin: 02/06/18 09:16 Dose: 40 mg Cholecalciferol (Vitamin D) 1,000 intlu PO DAILY [facility] Last Admin: 02/06/18 09:14 Dose: 1,000 intlu Dabigatran (Pradaxa) 150 mg PO BID [facility] PRN Reason: Protocol Last Admin: 02/06/18 09:11 Dose: 150 mg Dicyclomine HCl (Bentyl) 20 mg PO TID [facility] Last Admin: 02/06/18 09:11 Dose: 20 mg Famotidine (Famotidine) 20 mg IVP Q12 [facility] Last Admin: 02/06/18 09:17 Dose: 20 mg Gabapentin (Neurontin) 100 mg PO TID [facility] Last Admin: 02/06/18 09:14 Dose: 100 mg Lactated Ringer's (Lactated Ringer's) 1,000 mls @ 100 mls/hr IV .Q10H [facility] Last Admin: 02/06/18 09:29 Dose: 100 mls/hr Insulin Human Lispro (Humalog) 0 units SC ACHS [facility] PRN Reason: Protocol Last Admin: 02/06/18 06:56 Dose: Not Given Latanoprost (Xalatan Opht) 1 drop OU HS [facility] Last Admin: 02/05/18 21:43 Dose: 1 drop Levothyroxine Sodium (Synthroid) 100 mcg PO DAILY@0630 [facility] Last Admin: 02/06/18 06:56 Dose: 100 mcg Metformin HCl (Glucophage) 500 mg PO TID [facility] Last Admin: 02/04/18 12:00 Dose: 500 mg Metoclopramide HCl (Reglan) 10 mg IVP Q6 PRN PRN Reason: Nausea/Vomiting Last Admin: 02/03/18 18:24 Dose: 10 mg Ramipril (Altace) 2.5 mg PO DAILY [facility] Last Admin: 02/06/18 09:14 Dose: 2.5 mg Sotalol HCl (Betapace) 80 mg PO BID [facility] Last Admin: 02/06/18 09:14 Dose: 80 mg - Labs Labs: 02/06/18 05:30 02/06/18 05:30 - Neck Exam Neck Exam: Normal Inspection - Respiratory Exam Respiratory Exam: Clear to Ausculation Bilateral, NORMAL BREATHING PATTERN - Cardiovascular Exam Cardiovascular Exam: REGULAR RHYTHM - GI/Abdominal Exam GI & Abdominal Exam: Soft, Normal Bowel Sounds Assessment and Plan - Assessment and Plan (Free Text) Assessment: 77 yo female with diarrhea ibs versus gastroenteritis ragini pedersen planning when able
--- NOTE | 2018-02-06 23:08 | CP.PCM.PN ---
Subjective - Date & Time of Evaluation Date of Evaluation: 02/05/18 Time of Evaluation: 20:30 - Subjective Subjective: Seen and examined at the bed side. Continue to have diarrhea. Denies fever or chills. Denies Nausea or vomiting Objective - Vital Signs/Intake and Output Vital Signs (last 24 hours): Temp Pulse Resp BP Pulse Ox 97.8 F 63 18 124/79 100 02/06/18 11:57 02/06/18 11:57 02/06/18 11:57 02/06/18 11:57 02/06/18 11:57 - Labs Labs: 02/06/18 05:30 02/06/18 05:30 - Constitutional Appears: Well - Head Exam Head Exam: ATRAUMATIC, NORMAL INSPECTION, NORMOCEPHALIC - Eye Exam Eye Exam: EOMI, Normal appearance, PERRL Pupil Exam: NORMAL ACCOMODATION, PERRL - ENT Exam ENT Exam: Mucous Membranes Moist, Normal Exam - Neck Exam Neck Exam: Full ROM, Normal Inspection. absent: Lymphadenopathy - Respiratory Exam Respiratory Exam: Clear to Ausculation Bilateral, NORMAL BREATHING PATTERN - Cardiovascular Exam Cardiovascular Exam: REGULAR RHYTHM, +S1, +S2. absent: Murmur - GI/Abdominal Exam GI & Abdominal Exam: Soft, Normal Bowel Sounds. absent: Tenderness - Extremities Exam Extremities Exam: Full ROM, Normal Capillary Refill, Normal Inspection. absent : Joint Swelling, Pedal Edema - Back Exam Back Exam: NORMAL INSPECTION - Neurological Exam Neurological Exam: Alert, Awake, CN II-XII Intact, Normal Gait, Oriented x3 - Psychiatric Exam Psychiatric exam: Normal Affect, Normal Mood - Skin Skin Exam: Dry, Intact, Normal Color, Warm Assessment and Plan (1) Gastroenteritis Assessment & Plan: Intractable nausea and vomiting, Hiatal hernia, Abdominal cramping, Dehydration, Weakness IVF Pain Medication PRN Stool work Up GI Consult Status: Acute
--- NOTE | 2018-02-06 23:09 | CP.PCM.DIS ---
Provider - Provider Date of Admission: 02/04/18 11:40 Attending physician: Osmin Crabtree MD Time Spent in preparation of Discharge (in minutes): 25 Diagnosis - Discharge Diagnosis (1) Abdominal cramping Status: Acute (2) Dehydration Status: Acute (3) Gastroenteritis Status: Acute Priority: High (4) Intractable nausea and vomiting Status: Acute Hospital Course - Lab Results Lab Results: Micro Results 02/03/18 11:27 Stool Stool Culture - Final NO SALMONELLA, SHIGELLA OR CAMPYLOBACTER ISOLATED. Most Recent Lab Values WBC 2.8 K/uL (4.8-10.8) L 02/06/18 05:30 RBC 4.12 Mil/uL (3.80-5.20) 02/06/18 05:30 Hgb 12.3 g/dL (12.0-16.0) 02/06/18 05:30 Hct 37.4 % (34.0-47.0) 02/06/18 05:30 MCV 90.7 fl (81.0-99.0) 02/06/18 05:30 MCH 29.8 pg (27.0-31.0) 02/06/18 05:30 MCHC 32.9 g/dL (33.0-37.0) L 02/06/18 05:30 RDW 14.0 % (11.5-14.5) 02/06/18 05:30 Plt Count 109 K/uL (130-400) L D 02/06/18 05:30 MPV 8.9 fl (7.2-11.7) 02/06/18 05:30 Neut % (Auto) 61.9 % (50.0-75.0) 02/06/18 05:30 Lymph % (Auto) 25.8 % (20.0-40.0) 02/06/18 05:30 [place] % (Auto) 11.7 % (0.0-10.0) H 02/06/18 05:30 Eos % (Auto) 0.1 % (0.0-4.0) 02/06/18 05:30 Baso % (Auto) 0.5 % (0.0-2.0) 02/06/18 05:30 Neut # (Auto) 1.7 K/uL (1.8-7.0) L 02/06/18 05:30 Lymph # (Auto) 0.7 K/uL (1.0-4.3) L 02/06/18 05:30 [place] # (Auto) 0.3 K/uL (0.0-0.8) 02/06/18 05:30 Eos # (Auto) 0.0 K/uL (0.0-0.7) 02/06/18 05:30 Baso # (Auto) 0.0 K/uL (0.0-0.2) 02/06/18 05:30 Neutrophils % (Manual) 85 % (42-75) H 02/03/18 12:50 Lymphocytes % (Manual) 9 % (20-50) L 02/03/18 12:50 Monocytes % (Manual) 6 % (0-10) 02/03/18 12:50 Platelet Estimate Normal (NORMAL) 02/03/18 12:50 RBC Morphology Normal (NORMAL) 02/03/18 12:50 pO2 24 mm/Hg (30-55) L 02/03/18 12:18 VBG pH 7.38 (7.32-7.43) 02/03/18 12:18 VBG pCO2 44 mmHg (40-60) 02/03/18 12:18 VBG HCO3 23.8 mmol/L 02/03/18 12:18 VBG Total CO2 27.4 mmol/L (22-28) 02/03/18 12:18 VBG O2 Sat (Calc) 49.7 % (40-65) 02/03/18 12:18 VBG Base Excess 0.5 mmol/L (0.0-2.0) 02/03/18 12:18 VBG Potassium 4.0 mmol/L (3.6-5.2) 02/03/18 12:18 Sodium 135.0 mmol/L (132-148) 02/03/18 12:18 Chloride 102.0 mmol/L (98-107) 02/03/18 12:18 Glucose 137 mg/dL (65-105) H 02/03/18 12:18 Lactate 1.4 mmol/L (0.7-2.1) 02/03/18 12:18 FiO2 21.0 % 02/03/18 12:18 Sodium 139 mmol/l (132-148) 02/06/18 05:30 Potassium 3.5 MMOL/L (3.6-5.0) L 02/06/18 05:30 Chloride 109 mmol/L (98-107) H 02/06/18 05:30 Carbon Dioxide 15 mmol/L (22-30) L 02/06/18 05:30 Anion Gap 19 (10-20) 02/06/18 05:30 BUN 8 mg/dl (7-17) 02/06/18 05:30 Creatinine 0.7 mg/dl (0.7-1.2) 02/06/18 05:30 Est GFR ( Amer) > 60 02/06/18 05:30 Est GFR (Non-Af Amer) > 60 02/06/18 05:30 POC Glucose (mg/dL) 99 mg/dL (65-110) 02/06/18 05:04 Random Glucose 102 mg/dL (65-105) 02/06/18 05:30 Hemoglobin A1c 6.5 % (4.2-6.5) 02/04/18 05:05 Calcium 9.1 mg/dL (8.4-10.2) 02/06/18 05:30 Total Bilirubin 0.4 mg/dl (0.2-1.3) 02/06/18 05:30 AST 37 U/L (14-36) H 02/06/18 05:30 ALT 47 U/L (9-52) 02/06/18 05:30 Alkaline Phosphatase 48 U/L (38-126) 02/06/18 05:30 Troponin I < 0.0120 ng/mL (0.00-0.120) 02/04/18 05:05 Total Protein 6.9 G/DL (6.3-8.2) 02/06/18 05:30 Albumin 3.3 g/dL (3.5-5.0) L D 02/06/18 05:30 Globulin 3.5 gm/dL (2.2-3.9) 02/06/18 05:30 Albumin/Globulin Ratio 0.9 (1.0-2.1) L 02/06/18 05:30 Lipase 78 U/L (23-300) 02/03/18 12:50 TSH 3rd Generation 1.01 mIU/ML (0.46-4.68) 02/04/18 05:05 Venous Blood Potassium 4.0 mmol/L (3.6-5.2) 02/03/18 12:18 Urine Color Yellow (YELLOW) 02/03/18 15: Urine Clarity Slighty-cloudy (Clear) 02/03/18 15: Urine pH 5.0 (5.0-8.0) 02/03/18 15: Ur Specific [place] 1.025 (1.003-1.030) 02/03/18 15: Urine Protein 30 mg/dL (NEGATIVE) 02/03/18 15: Urine Glucose (UA) Neg mg/dL (Normal) 02/03/18 15: Urine Ketones Negative mg/dL (NEGATIVE) 02/03/18 15: Urine Blood Negative (NEGATIVE) 02/03/18 15: Urine Nitrate Negative (NEGATIVE) 02/03/18 15: Urine Bilirubin Negative (NEGATIVE) 02/03/18 15: Urine Urobilinogen 0.2-1.0 mg/dL (0.2-1.0) 02/03/18 15: Ur Leukocyte Esterase Neg Chris/uL (Negative) 02/03/18 15: Urine RBC (Auto) 3 /hpf (0-3) 02/03/18 15: Urine Microscopic WBC 3 /hpf (0-5) 02/03/18 15: Ur Squamous Epith Cells 1 /hpf (0-5) 02/03/18 15: C. difficile Ag & Toxin Negative (NEGATIVE) 02/04/18 09:47 Discharge Exam - Head Exam Head Exam: ATRAUMATIC, NORMAL INSPECTION, NORMOCEPHALIC - Eye Exam Eye Exam: EOMI, Normal appearance, PERRL Pupil Exam: NORMAL ACCOMODATION, PERRL - Cardiovascular Exam Cardiovascular Exam: +S1, +S2 - GI/Abdominal Exam GI & Abdominal Exam: Normal Bowel Sounds - Back Exam Back exam: NORMAL INSPECTION - Neurological Exam Neurological exam: Alert, CN II-XII Intact, Normal Gait, Oriented x3, Reflexes Normal - Psychiatric Exam Psychiatric exam: Normal Affect, Normal Mood - Skin Skin Exam: Dry, Intact, Normal Color, Warm Discharge Plan - Discharge Medications Prescriptions: Dicyclomine [Bentyl] 20 mg PO TID #90 tab - Follow Up Plan Condition: STABLE Disposition: HOME/ ROUTINE Instructions: Dehydration, Adult (DC), Viral Gastroenteritis, Adult (DC) Additional Instructions: hacer levar con el doctor yoo en 1 semana. Referrals: Jaguar Delvalle MD, PhD [Staff Provider] -
--- NOTE | 2018-02-09 08:41 | CON ---
DATE: 02/04/2018 REFERRING DOCTOR: . REASON FOR CONSULTATION: Diarrhea. HISTORY OF PRESENT ILLNESS: This is a very jossie 77-year-old female with a history of arthritis, CAD, hypertension, hypercholesterolemia, hyperlipidemia, and hypothyroidism who comes in for diarrhea and cramps for the past 2 to 3 days. Denies any fevers or chills. No recent travels or sick contacts. No new medications, currently lying in bed comfortably, in no apparent distress. PAST MEDICAL HISTORY: As above. PAST SURGICAL HISTORY: As above. MEDICATIONS: Have been reviewed. REVIEW OF SYSTEMS: All other systems have been reviewed and negative apart from the HPI. PHYSICAL EXAMINATION: VITAL SIGNS: Here in the hospital are grossly unremarkable. GENERAL: A pleasant elder appearing female, lying in bed comfortably, and in no apparent distress. HEENT: Head is normocephalic and atraumatic. Eyes; pupils are equally reactive to light bilaterally. No conjunctival pallor or icterus. NECK: Supple. Normal range of motion. No lymphadenopathy appreciated. LUNGS: Coarse breath sounds bilaterally. HEART: S1 and S2, regular rate and rhythm. No murmurs appreciated. ABDOMEN: Soft and nontender. Bowel sounds are present. No rebound. No guarding. RECTAL: Deferred. EXTREMITIES: Pulses present bilaterally. SKIN: Warm, dry and intact. NEUROLOGIC: A and O x3. LABORATORY DATA: All labs and radiology have been reviewed. Labs include WBC of 3.9, hemoglobin of 13.3, and hematocrit of 39.8. C. diff is negative. CAT scan of the abdomen and pelvis shows no acute findings. ASSESSMENT AND PLAN: This is a 77-year-old female with diarrhea, this is more likely gastroenteritis versus irritable bowel syndrome, once cdiff is ruled out. I recommend trial of Bentyl and advance diet as tolerated. We will follow the patient with you. Thank you for the consult. Jaguar Delvalle MD/ PhD cc: [facility]
--- NOTE | 2018-02-09 09:04 | PQF GENQUE ---
This form is a permanent part of the medical record Dr. Solorio Seman: Discharge summary without final diagnosis, still in draft. H&P still in draft. Clarification of your documentation is requested to better reflect the severity of illness and intensity of treatment of your patient. Indicators present [] Specify: [] [] Specify: [] [] Specify: [] [] Specify: [] Location in the medical record that reflects the above clinical findings: [] Treatment Provided: [] PHYSICIAN'S RESPONSE Based on your medical judgment of the clinical indicators outlined above please clarify the following: [] Practitioner response [] If unable to determine, please check the box, sign and date. Present On Admission (POA) Indicator: [] Present at the time of admission [] Not present at the time of admission [] Clinically Undetermined In responding to this query, please exercise your independent professional judgment. The fact that a question is asked does not imply that any particular answer is desired or expected. Thank you for your clarification on this documentation. If you have any questions please call:[ ] * Thank you, * Tanya Holland [phone] vendor management associate JHOANA
[2018-02-11 09:51] LABS: STOOL SODIUM 117.5 mEq/L
== END 2018-02-06 15:06 | disposition home or self-care (01) | DRG 392 ==
LOC: H.ER 10:58 → H.ERHOLD 17:18 → H.TEL 20:14 → OBSVTOIN 02-04 11:40 → H.TEL 02-04 15:08
PROVIDERS: ADMIT Internal Medicine; ATTEND Internal Medicine
DX: K52.9 Noninfective gastroenteritis and colitis, unspecified (principal); R19.7 Diarrhea, unspecified; E86.0 Dehydration; I10 Essential (primary) hypertension; I25.10 Atherosclerotic heart disease of native coronary artery without angina pectoris; K44.9 Diaphragmatic hernia without obstruction or gangrene; Z79.01 Long term (current) use of anticoagulants; Z79.811 Long term (current) use of aromatase inhibitors; Z90.49 Acquired absence of other specified parts of digestive tract; K29.70 Gastritis, unspecified, without bleeding; M19.90 Unspecified osteoarthritis, unspecified site; Z79.84 Long term (current) use of oral hypoglycemic drugs; Z79.899 Other long term (current) drug therapy; E03.9 Hypothyroidism, unspecified; E11.9 Type 2 diabetes mellitus without complications; E78.00 Pure hypercholesterolemia, unspecified; E78.5 Hyperlipidemia, unspecified; Z85.3 Personal history of malignant neoplasm of breast